=== PATIENT | male | born 1935 | race Caucasian/White ===

== ENCOUNTER 2021-06-19 13:52 | Outpatient (CLI) | payer MEDICARE ==
--- NOTE | 2021-06-19 14:31 | XRAY Report ---
PROCEDURE: Chest 2 View X-Ray INDICATIONS: COUGH TECHNIQUE: 2 view(s) of the chest. COMPARISON: None. FINDINGS: Surgical changes and devices: None. Lungs and pleura: No pleural effusions or pneumothorax. Lungs are clear. Mediastinum: Mediastinal contours are normal. Heart size is normal. Bones and chest wall: No suspicious bony abnormalities. Soft tissues appear unremarkable. IMPRESSION: No evidence acute pulmonary process. Reviewed by: Syed Mosqueda MD on 06/19/2021 2:30 PM PDT Approved by: Syed Mosqueda MD on 06/19/2021 2:30 PM PDT Station ID: [id number]
== END 2021-06-19 23:59 | disposition home or self-care (01) ==
LOC: DI.S 13:52
PROVIDERS: ATTEND Physician Assistant Medical
DX: U07.1 COVID-19 (principal); R05 Cough
CPT/HCPCS: 71046; U0004